=== PATIENT | male | born 1965 | race Caucasian/White ===

== ENCOUNTER 2017-01-17 16:51 | Emergency (ER) | payer MEDICAID ==
[2017-01-17 17:00] VITALS: BP 136/88
[2017-01-17] MEDS ORDERED: ACETAMINOPHEN 325 MG TABLET PO STA (17:11)
--- NOTE | 2017-01-17 17:12 | ED Physician Documentation ---
History of Present Illness - Stated complaint Stated Complaint: FALL-BACK PAIN - Chief complaint Chief Complaint: General - Additonal information Additional information: [place], states he was longterm up the ladder of an RV and fell backwards landing on his butt and complains only of sacral pain, no other injuries. Review of Systems Constitutional: denies: Fever Cardiac: denies: Chest pain / pressure GI: denies: Abdominal Pain Musculoskeletal: denies: Neck pain Neurologic: denies: Head injury PD PAST MEDICAL HISTORY - Allergies Allergies/Adverse Reactions: Allergies Allergy/AdvReac Type Severity Reaction Status Date / Time acetaminophen [From Tylenol] Allergy Unknown Verified 01/17/17 17:00 sulfamethoxazole Allergy Unknown Verified 01/17/17 17:00 [From Bactrim] trimethoprim [From Bactrim] Allergy Unknown Verified 01/17/17 17:00 PD ED PE NORMAL - Vitals Vital signs reviewed: Yes - General General: Alert and oriented X 3, No acute distress - Back Back: No spinal TTP, Other (tender to the mid and low sacrum) - Neuro Neuro: Alert and oriented X 3, Normal speech - Psych Psych: Normal mood, Normal affect Results - Vitals Vitals: Vital Signs - 24 hr 01/17/17 16:55 Temperature 36 C L Heart Rate 74 Respiratory 20 Rate Blood Pressure 136/88 H O2 Saturation 100 Oxygen O2 Source Room air PD MEDICAL DECISION MAKING - ED course ED course: He states he hadn't taken anything other than ibuprofen for the pain, he states he had not recently been evaluated or been on any pain medication. Review of the prescription monitoring program shows that he received a prescription for 25 Percocet in [facility] 8 days ago, and 6 days ago another prescription from [place] for 15 Percocet. He became very evasive when I asked him specifically about this and then admitted that was him but he didn't have a specific explanation why he had lied about recent evaluations or pain medication. I discussed with him that based on this inconsistency I would be unwilling to dispense or prescribe any narcotics but that we should still get sacral x-rays. He demanded to leave at that juncture. Departure - Departure Disposition: 01 Home, Self Care Clinical Impression: Drug-seeking behavior Condition: Good Record reviewed to determine appropriate education?: Yes Comments: Return if you want to do xrays Your blood pressure was elevated today on check in to the emergency department. This does not mean that you have hypertension, it is a common phenomenon to check into the emergency department and have elevated blood pressure. I recommend that you see your primary care physician within the week to have it rechecked when you're feeling better. Discharge Date/Time: 01/17/17 17:16
== END 2017-01-17 17:16 | disposition home or self-care (01) ==
LOC: ED 16:51
DX: Z76.5 Malingerer [conscious simulation] (principal); W11.XXXA Fall on and from ladder, initial encounter
CPT/HCPCS: 99282; 99283